=== PATIENT | female | born 1945 | race Native Hawaiian/Other Pacific Islander ===

== ENCOUNTER 2016-10-31 10:40 | Outpatient (CLI) | payer OTHER ==
[2016-10-31 11:21] LABS: PLATELET COUNT 296 K/uL (152-353)
[2016-10-31 11:59] LABS: POTASSIUM 4.7 mmol/L (3.6-5.2)
== END 2016-10-31 19:08 | disposition home or self-care (01) ==
LOC: LABW 10:40 → MAMMO 10:40 → LABW 19:08
PROVIDERS: Nurse Practitioner
DX: E11.9 Type 2 diabetes mellitus without complications (principal); E03.8 Other specified hypothyroidism; Z12.31 Encounter for screening mammogram for malignant neoplasm of breast; Z00.00 Encounter for general adult medical examination without abnormal findings
CPT/HCPCS: 36415; 80053; 80061; 82043; 82570; 83036; 84443; 85027; G0202-TC

== ENCOUNTER 2018-07-17 09:24 | Outpatient (CLI) | payer OTHER | END 2018-07-17 19:25 | disposition home or self-care (01) | LOC: MAMMO 09:24 | DX: Z12.31 Encounter for screening mammogram for malignant neoplasm of breast (principal); Z13.820 Encounter for screening for osteoporosis; Z78.0 Asymptomatic menopausal state ==

== ENCOUNTER 2019-01-19 08:44 | Outpatient (CLI) | payer OTHER | END 2019-01-19 23:13 | disposition home or self-care (01) | LOC: US 08:44 | DX: R10.9 Unspecified abdominal pain (principal) ==

== ENCOUNTER 2019-12-07 13:43 | Outpatient (CLI) | payer OTHER ==
[2019-12-07 14:33] LABS: POTASSIUM 4.8 mmol/L (3.6-5.2)
== END 2019-12-07 19:05 | disposition home or self-care (01) ==
LOC: LAB 13:43
PROVIDERS: Nurse Practitioner Family
DX: Z79.4 Long term (current) use of insulin (principal)
CPT/HCPCS: 80053

== ENCOUNTER 2020-05-29 09:53 | Outpatient (CLI) | payer OTHER | END 2020-05-29 21:23 | disposition home or self-care (01) | LOC: RAD 09:53 | DX: R06.02 Shortness of breath (principal) ==

== ENCOUNTER 2020-08-30 09:43 | Outpatient (CLI) | payer OTHER | END 2020-08-30 21:05 | disposition home or self-care (01) | LOC: LAB 09:43 | PROVIDERS: ATTEND Nurse Practitioner Family | DX: Z11.59 Encounter for screening for other viral diseases (principal); R09.81 Nasal congestion; R05 Cough | CPT/HCPCS: 87635; G2023; U0003 ==

== ENCOUNTER 2020-09-11 09:33 | Outpatient (CLI) | payer OTHER | END 2020-09-11 19:34 | disposition home or self-care (01) | LOC: LAB 09:33 | PROVIDERS: ATTEND Nurse Practitioner Family | DX: U07.1 COVID-19 (principal); R06.02 Shortness of breath; R05 Cough; R09.81 Nasal congestion | CPT/HCPCS: 87635; G2023; U0003 ==

== ENCOUNTER 2021-01-31 09:33 | Outpatient (CLI) | payer OTHER | END 2021-01-31 20:41 | disposition home or self-care (01) | LOC: MAMMO 09:33 | PROVIDERS: ATTEND Nurse Practitioner Family | DX: Z12.31 Encounter for screening mammogram for malignant neoplasm of breast (principal) ==

== ENCOUNTER 2022-08-27 10:43 | Outpatient (CLI) | payer OTHER | END 2022-08-27 19:38 | disposition home or self-care (01) | LOC: MAMMO 10:43 | PROVIDERS: ATTEND Nurse Practitioner Family | DX: N64.4 Mastodynia (principal) | CPT/HCPCS: G0279 ==

== ENCOUNTER 2022-09-25 12:05 | Outpatient (CLI) | payer OTHER | END 2022-09-25 19:17 | disposition home or self-care (01) | LOC: RAD 12:05 | PROVIDERS: ATTEND Nurse Practitioner Family | DX: M54.30 Sciatica, unspecified side (principal) ==

== ENCOUNTER 2022-10-16 12:41 | Outpatient (CLI) | payer OTHER | END 2022-10-16 19:56 | disposition home or self-care (01) | LOC: MRI 12:41 | PROVIDERS: ATTEND Orthopaedic Surgery | DX: M54.16 Radiculopathy, lumbar region (principal) ==

== ENCOUNTER 2022-12-19 22:16 | Inpatient (IN) | payer OTHER ==
[~2022-12-19] VITALS: Ht 160 cm; Wt 80.7 kg
[2022-12-19 22:25] VITALS: BP 177/80; TEMP 101
[2022-12-19 23:00] VITALS: BP 154/55
[2022-12-19 23:27] LABS: PLATELET COUNT 175 K/uL (152-353)
[2022-12-19 23:30] VITALS: BP 135/53
[2022-12-19 23:30] LABS: POTASSIUM 3.7 mmol/L (3.6-5.2)
[2022-12-20] VITALS (14 sets, daily range): BP systolic 118–144; BP diastolic 39–55; TEMP 97.9–100.2; Ht 160 cm; Wt 80.7 kg
[2022-12-20] MEDS ORDERED: RYBELSUS7 MG PO (03:38)
[2022-12-20] MEDS ORDERED: OMEPRAZOLE40 MG PO (03:39)
[2022-12-20] MEDS ORDERED: LISINOPRIL & HCTZ PO (03:39)
[2022-12-20 09:00] LABS: PLATELET COUNT 312 K/uL (152-353)
[2022-12-20 09:06] LABS: POTASSIUM 4.4 mmol/L (3.6-5.2)
[2022-12-20] MEDS ORDERED: PRAVASTATIN PO (11:07)
[2022-12-20] MEDS ORDERED: VENLAFAXINE75 M2 PO (11:08)
[2022-12-20] MEDS ORDERED: CYCL10TA35 PO (11:09)
[2022-12-20] MEDS ORDERED: LEVO0.0723 PO (11:10)
[2022-12-20] MEDS ORDERED: GLIM4TAB PO (11:11)
[2022-12-20] MEDS ORDERED: FENOFIBRATE54 MG PO (11:11)
[2022-12-20] MEDS ORDERED: ALPR0.5T24 PO (11:12)
[2022-12-20] MEDS ORDERED: LEVEMIR FL100 UNIT/M SC (11:12)
[2022-12-21] VITALS (9 sets, daily range): BP systolic 127–155; BP diastolic 50–65; TEMP 98.1–101.1
[2022-12-21 10:09] LABS: PLATELET COUNT 330 K/uL (152-353)
[2022-12-21 10:10] LABS: POTASSIUM 3.5 mmol/L (3.6-5.2)
[2022-12-22] VITALS: BP 128/62; TEMP 98.7
[2022-12-22 04:00] VITALS: BP 136/48; TEMP 97.9
[2022-12-22 05:19] LABS: POTASSIUM 4.8 mmol/L (3.6-5.2)
[2022-12-22 05:34] LABS: PLATELET COUNT 357 K/uL (152-353)
[2022-12-22 12:29] VITALS: BP 142/72; TEMP 98.6
[2022-12-22 16:00] VITALS: BP 154/67; TEMP 98.6
[2022-12-22 19:39] VITALS: BP 156/71; TEMP 98.5
[2022-12-23] VITALS: BP 146/61; TEMP 100
[2022-12-23 03:39] VITALS: BP 120/52; TEMP 98.6
[2022-12-23 05:02] LABS: PLATELET COUNT 391 K/uL (152-353)
[2022-12-23 05:18] LABS: POTASSIUM 4.7 mmol/L (3.6-5.2)
[2022-12-23 08:00] VITALS: BP 170/67; TEMP 98.2
[2022-12-23 12:00] VITALS: BP 143/60; TEMP 98.7
[2022-12-23 16:00] VITALS: BP 158/61; TEMP 100.1
[2022-12-23 20:00] VITALS: BP 156/56; TEMP 98.5
[2022-12-24] VITALS: BP 152/69; TEMP 98.4
[2022-12-24 04:00] VITALS: BP 152/63; TEMP 97.5
[2022-12-24 07:49] VITALS: BP 152/69; TEMP 98.4
[2022-12-24] MEDS ORDERED: CEFD300C2 PO (08:52)
[2022-12-24] MEDS ORDERED: GUAI600T70 PO (08:53)
[2022-12-24] MEDS ORDERED: ALBU90AE13 INH (08:57)
== END 2022-12-24 12:24 | disposition home or self-care (01) | DRG 640 ==
LOC: ED 22:16 → MED/SURG 12-20 02:55
PROVIDERS: ADMIT Emergency Medicine; ATTEND Internal Medicine
DX: E87.1 Hypo-osmolality and hyponatremia (principal); J16.8 Pneumonia due to other specified infectious organisms; E86.0 Dehydration; R41.0 Disorientation, unspecified; K29.60 Other gastritis without bleeding; I10 Essential (primary) hypertension; E11.9 Type 2 diabetes mellitus without complications; E78.49 Other hyperlipidemia; G89.4 Chronic pain syndrome; N18.30 Chronic kidney disease, stage 3 unspecified
CPT/HCPCS: 36415; 80053; 81002; 82948; 83735; 83930; 83935; 84133; 84300; 84443; 85027; 87040; 87070; 87205; 87502; 93005; 96361; 96372; 96374; 96375; 99284; J0456; J0692; J1650; J1815; J1885; J2405; Q9963

== ENCOUNTER 2023-03-12 08:51 | Outpatient (CLI) | payer OTHER ==
[~2023-03-12 08:51] MED LIST: ALBU90AE13 INH; ALPR0.5T24 PO; CEFD300C2 PO; CYCL10TA35 PO; FENOFIBRATE54 MG PO; GLIM4TAB PO; GUAI600T70 PO; LEVEMIR FL100 UNIT/M SC; LEVO0.0723 PO; LISINOPRIL & HCTZ PO; OMEPRAZOLE40 MG PO; PRAVASTATIN PO; RYBELSUS7 MG PO; VENLAFAXINE75 M2 PO
== END 2023-03-12 18:52 | disposition home or self-care (01) ==
LOC: MAMMO 08:51
PROVIDERS: ATTEND Nurse Practitioner Family
DX: R92.8 Other abnormal and inconclusive findings on diagnostic imaging of breast (principal)